=== PATIENT | female | born 1965 | race Caucasian/White ===

== ENCOUNTER → 2016-09-13 | Outpatient (CLI) | payer OTHER | LOC: CIMAGING 11:37 | PROVIDERS: ATTEND Family Medicine | DX: M54.9 Dorsalgia, unspecified (principal); M46.1 Sacroiliitis, not elsewhere classified | CPT/HCPCS: 72100-PO; 72202-PO ==

== ENCOUNTER → 2017-01-31 | Outpatient (CLI) | payer OTHER | LOC: BMCIMAGING 15:49 | PROVIDERS: ATTEND Podiatrist Foot & Ankle Surgery | DX: M21.42 Flat foot [pes planus] (acquired), left foot (principal); M77.32 Calcaneal spur, left foot ==

== ENCOUNTER → 2017-02-14 | Outpatient (CLI) | payer OTHER ==
[~2017-02-14] MED LIST: IOPAMIDOL (ISOVUE-300) 100 ML BTL ONE
== END ==
LOC: FIMAGING 14:35
PROVIDERS: ATTEND Family Medicine
DX: R22.1 Localized swelling, mass and lump, neck (principal); R07.9 Chest pain, unspecified
CPT/HCPCS: Q9967

== ENCOUNTER → 2017-04-06 | Outpatient (CLI) | payer OTHER | LOC: FIMAGING 14:05 | PROVIDERS: ATTEND Family Medicine | DX: R59.0 Localized enlarged lymph nodes (principal) ==

== ENCOUNTER 2017-06-28 05:43 | Day surgery (SDC) | payer OTHER ==
--- NOTE | 2017-06-27 13:20 | GHP ---
[f rep st] PREOP HISTORY AND PHYSICAL DATE OF ADMISSION: 06/28/2017 HISTORY OF PRESENT ILLNESS: Sandro is a 52-year-old female, who comes to us with complaints of a te nder right supraclavicular lump. A neck CT was performed, which was rather unremarkable aside from s ome mildly enlarged left level IIA cervical lymph nodes measuring up to 11 mm. Of note, the largest right-sided lymph node measured 7 mm. Her nasal cavity, oral cavity, pharynx,larynx, parotid gland, and thyroid gland were normal, and the visualized brain and intracranial contents were normal, as wel l. She does complain of some night sweats but denies any infections, trauma, weight loss, chronic co ugh, or fatigue. PAST MEDICAL HISTORY: Per PCP, includes genital herpes and sacroiliac inflammation. PAST SURGICAL HISTORY: Hysterectomy. MEDICATIONS: Aspirin and valacyclovir. ALLERGIES: Erythromycin and penicillin. SOCIAL HISTORY: Patient has 3 adult children and does not smoke. REVIEW OF SYSTEMS: Includes night sweats, headaches, varicose veins, leg swelling, joint pain, and c laustrophobia; otherwise, a 10-point review of systems was negative. PHYSICAL EXAMINATION: GENERAL: A 52-year-old female, alert and oriented x3, and in no acute distres s. HEENT: Normocephalic, atraumatic. NECK: No thyromegaly, with mild mobile supraclavicular and c ervical lymphadenopathy. All very soft. CHEST: Clear to auscultation bilaterally. CARDIAC: Regul ar rate and rhythm. ABDOMEN: Soft, nontender. EXTREMITIES: Warm and dry. PSYCH: Normal mood and affect. IMPRESSION: This is a 52-year-old female who complains of night sweats and tender right cervical lym phadenopathy. PLAN: The patient's head and neck CT was not terribly concerning; however, the patient is very worri ed about these enlarged lymph nodes. We will go ahead and proceed with right supraclavicular lymph n ode biopsy. Risks and options have been discussed including, but not limited to, bleeding, infection , swelling, injury to a nerve, damage to surrounding structures, failure to obtain diagnosis, need fo r further surgery, and/or treatment, and other problems, and she requests to proceed. /[id number]/MODL
[2017-06-28] MEDS ORDERED: LIDOCAINE 1% 2 ML INJ ID PRN (05:54)
[2017-06-28] MEDS ORDERED: LR 1,000 ML IV ONE (05:54)
[2017-06-28] MEDS ORDERED: levOFLOXACIN 500 MG/DEXTROSE 100 ML IV ONE (06:00)
[2017-06-28] MEDS ORDERED: BUPIVACAINE 0.5% 30 ML SDV ONE (06:16)
[2017-06-28 06:32] VITALS: PULSE 77
--- NOTE | 2017-06-28 06:35 | PDHPUP ---
History & Physical Update H&P update statement: This history and physical update is based on an assessment of the patient which was completed after admission or registration (within 24 hours), but prior to the surgery/procedure. updated 06/28/17
[2017-06-28] MEDS ORDERED: MIDAZOLAM 2 MG/2 ML VIAL IVP ONE (07:07)
--- NOTE | 2017-06-28 07:08 | PDANEPAE ---
ANE History of Present Illness left neck mass ANE Past Medical History - Cardiovascular History Hx Hypertension: No Hx Arrhythmias: No Hx Chest Pain: No Hx Coronary Artery / Peripheral Vascular Disease: No Hx CHF / Valvular Disease: No Hx Palpitations: No - Pulmonary History Hx COPD: No Hx Asthma/Reactive Airway Disease: No Hx Recent Upper Respiratory Infection: No Hx Oxygen in Use at Home: No Hx Sleep Apnea: Yes Sleep Apnea Screening Result - Last Documented: Positive Pulmonary History Comment: LAITH uses CPAP - Neurologic History Hx Cerebrovascular Accident: No Hx Seizures: No Hx Dementia: No Neurologic History Comment: "H/A starts at base of neck and then goes to forehead" since December -"persisted" - Endocrine History Hx Diabetes: No - Renal History Hx Renal Disorders: Yes Renal History Comment: occ stress incontinence. Kidney infection . - Liver History Hx Hepatic Disorders: No - Neurological & Psychiatric Hx Hx Neurological and Psychiatric Disorders: No - Cancer History Hx Cancer: No - Congenital Disorder History Hx Congenital Disorders: No - GI History Hx Gastrointestinal Disorders: No - Other Health History Other Health History: enlarged lymph node (L side of neck) .Also enlarged lymph nodes R side - Chronic Pain History Chronic Pain: No - Surgical History Prior Surgeries: partial hysterectomy w/ bladder suspension 1993. tonsillectomy child. lymph nodes excised -bilat axilla ANE Review of Systems Review of Systems: - Exercise capacity METS (RN): 4 METS ANE Patient History - Allergies Allergies/Adverse Reactions: Penicillins Allergy (Verified 06/26/17 10:13) Rash ERITHROMYCIN Allergy (Uncoded 06/26/17 10:13) Rash - Home Medications Home medications: home medication list seen and reviewed Home Medications: NK [No Known Home Meds] 06/26/17 [Last Taken Unknown] - NPO status NPO Status: no food or drink >8 hours NPO Since - Liquids (Date): 06/27/17 NPO Since - Liquids (Time): 22:00 NPO Since - Solids (Date): 06/27/17 NPO Since - Solids (Time): 20:00 - Smoking Hx Smoking Status: Never smoked ANE Labs/Vital Signs - Vital Signs Blood Pressure: 129/82 Heart Rate: 77 Respiratory Rate: 16 O2 Sat (%): 92 Height: 165.1 cm Weight: 104.326 kg ANE Physical Exam - Airway Neck exam: FROM Mallampati Score: Class 1 Mouth exam: normal dental/mouth exam - Pulmonary Pulmonary: no respiratory distress - Cardiovascular Cardiovascular: regular rate and rhythym - ASA Status ASA Status: II ANE Anesthesia Plan Anesthesia Plan: GA w LMA
[2017-06-28] MEDS ORDERED: fentaNYL 100 MCG/2 ML INJ ONE ×3 (07:10→09:01)
[2017-06-28] MEDS ORDERED: PROPOFOL 200 MG/20 ML VIAL ONE ×2 (07:10)
[2017-06-28] MEDS ORDERED: NALOXONE HCL 0.4 MG/ML INJ IVP PRN (07:44)
[2017-06-28] MEDS ORDERED: fentaNYL 100 MCG/2 ML INJ IVP PRN (07:44)
[2017-06-28] MEDS ORDERED: PROMETHAZINE HCL 25 MG/ML INJ IVP PRN (07:44)
[2017-06-28] MEDS ORDERED: OXYCODONE/APAP 5/325 TAB PO PRN (07:44)
[2017-06-28] MEDS ORDERED: ONDANSETRON 4 MG/2 ML VIAL IVP PRN (07:44)
[2017-06-28] MEDS ORDERED: HYDROmorphONE/DILAUDID 1 MG/ML INJ IVP PRN (07:44)
[2017-06-28] MEDS ORDERED: BUPIVACAINE/EPI 0.5% 30 ML SDV ONE (07:51)
--- NOTE | 2017-06-28 08:30 | POSTANESTH ---
Post Anesthetic Evaluation Cardiovascular Status: Normal, Stable Respiratory Status: Normal, Stable Level of Consciousness/Mental Status: Can Participate in Eval Pain Control: Adequate, Prn Tx Ordered Nausea/Vomiting Control: Adequate, Prn Tx Ordered Complications Possibly Related to Anesthesia: None Noted
[2017-06-28 09:05] VITALS: RESP 15
[2017-06-28 09:47] VITALS: TEMP 97.5
--- NOTE | 2017-06-28 09:50 | GOP ---
[f rep st] OPERATIVE REPORT DATE OF OPERATION: SURGEON: Jason Denney MD DELIVERY DRIVER/CUSTOMER SERVICE: HAVEN Rahman. ANESTHESIOLOGIST: Dr. Washington. PREOPERATIVE DIAGNOSIS: Left supraclavicular adenopathy. POSTOPERATIVE DIAGNOSIS: Left supraventricular adenopathy; path pending. PROCEDURE PERFORMED: Left scalene node biopsies. FINDINGS: The patient was found to have 2 enlarged 1 cm lymph nodes in the scalene fat pad which nieves eared to be matted together. They did not appear to be malignant. There was no associated purulence . Final path is pending. DESCRIPTION OF PROCEDURE: Patient taken to the operating room where she received satisfactory genera l endotracheal anesthesia by Dr. Washington, placed in supine position, prepped and draped in usual steri le fashion. A transverse incision was made in the left supraclavicular space, carried down through t he platysma and superficial fascia. A palpable mass was grasped with towel clip and elevated up. It appeared to be a couple of lymph nodes matted together. These were dissected free. Hemostasis was obtained with hemoclips and electrocautery. The wound was infiltrated with 0.5% Marcaine. Platysma was closed with 3-0 Vicryl and the skin with a 4-0 Monocryl subcuticular stitch. She tolerated the p rocedure well. No complications. Taken to recovery room in good condition. /[id number]/MODL
[2017-06-28 10:17] VITALS: BP 108/77; O2SAT 92
--- NOTE | 2017-06-28 12:50 | POSTOPPROG ---
Post Op Note Date of Operation: 06/28/17 Surgeon: Jason Denney Motor Equipment Lieutenant: Andrea Culver Anesthesiologist: Dr Yanez Anesthesia: GET(General Endotracheal) Pre-op Diagnosis: Left cervical lymphdenopathy Post-op Diagnosis: same Indication: same Procedure: left supra clvicular node excision Findings: inflammed appearing nodes Inf/Abcess present in the surg proc area at time of surgery?: No Depth: Deep Incisional (Fascial) EBL: Minimal Specimen(s): 2 nodes
[2017-06-30 12:19] LABS: FINAL DIAGNOSIS See Comments; MICROSCOPIC DESCRIPTION See Comments
== END 2017-06-28 10:43 | disposition home or self-care (01) ==
LOC: FSGY 05:43
PROVIDERS: ATTEND Surgery
PROC: 07B20ZX Excision of Left Neck Lymphatic, Open Approach, Diagnostic (ICD-10-PCS; principal; 2017-06-28 07:15)
DX: R59.0 Localized enlarged lymph nodes (principal)
CPT/HCPCS: 88184-90; 88185-91; J0171; J1956; J2250; J2704; J3010

== ENCOUNTER 2017-10-24 14:55 | Emergency (ER) | payer OTHER ==
[2017-10-24] MEDS ORDERED: ASPIRIN 81 MG CHEWABLE TAB PO ONE (15:19)
--- NOTE | 2017-10-24 15:27 | EDPHY ---
H & P Time Seen by Provider: 10/24/17 15:10 HPI/ROS: This patient complains of right calf pain since air travel over the weekend. She explains that she flew to [place] for the weekend and return Sunday, 2 days prior to this visit and upon returning she noted some achiness for of 10 in intensity deep in her right mid calf that persists. This pain worsened slightly when she walks. No other exacerbating factors. She does recall having this pain before. She has associated paresthesias to the right foot describes tingling. She called her primary care physician regarding the symptoms and the urged her to come in the emergency department to rule out DVT. The patient came in by private vehicle for evaluation of her symptoms. She also complains of a mild bifrontal headache similar to prior headaches over the past 2 days. She took ibuprofen yesterday with relief of her headache but no change in her calf pain. She notes no other exacerbating factors. ROS: Constitutional: No fevers or chills. HEENT: No recent URI symptoms. No ear pain, throat pain or other complaints Neuro: No confusion. No focal weakness. Tingling in the right foot but no numbness. Pulmonary: No shortness of breath. No pleuritic pain Cardiovascular: No lightheadedness. She has noticed significant swelling the affected calf. No discoloration the affected leg. GI: No complaints : No complaints new line integumentary: No skin rash 10 point ROS is otherwise negative. Past Medical/Surgical History: Obesity Sleep apnea No family history of DVT or PE Social History: Travel to [place] by plane over the weekend return to Sunday. Smoking Status: Never smoked Physical Exam: Vital signs are normal General Appearance: Pleasant obese female Alert, no distress. Eyes: Pupils equal and round no pallor or injection. ENT, Mouth: Mucous membranes moist. No sinus tenderness. No other cranial tenderness. Neck is supple with no meningismus. Respiratory: There are no retractions, lungs are clear to auscultation. Cardiovascular: Regular rate and rhythm. Neurological: GCS 15. She maintains normal light touch sensory exam bilateral lower extremities despite her paresthesias. Cranial nerves 2-12 grossly intact. Skin: Warm and dry, no rashes. Musculoskeletal: Neck is supple nontender. Extremities are symmetrical, full range of motion. The patient has left calf tenderness in the mid calf. Homans is negative. No significant swelling. Psychiatric: Mood and affect are normal DIFFERENTIAL DIAGNOSIS: After history and physical exam differential diagnosis was considered for DVT, calf muscle strain, Liu cyst, tension headache, unspecified headache Constitutional: Initial Vital Signs Temperature (C) 36.8 C 10/24/17 15:08 Heart Rate 83 10/24/17 15:08 Respiratory Rate 14 10/24/17 15:08 Blood Pressure 127/89 H 10/24/17 15:08 O2 Sat (%) 94 10/24/17 15:08 O2 Delivery Mode Room Air Allergies/Adverse Reactions: Penicillins Allergy (Verified 10/24/17 15:07) Rash ERITHROMYCIN Allergy (Uncoded 06/26/17 10:13) Rash Home Medications: Medication Instructions Recorded NK [No Known Home Meds] 06/26/17 MDM/Departure - MDM Imaging Results: Imaging Impressions Extremity Venous Study 10/24/17 15:19 Impression: No evidence of deep vein thrombosis in the right lower extremity. Imaging: Discussed imaging studies w/ call center receptionist Radiologist Medications Given: Discontinued Medications Aspirin (Aspirin) 324 mg PO EDNOW ONE Stop: 10/24/17 15:20 Last Admin: 10/24/17 15:23 Dose: 324 mg ED Course/Re-evaluation: Aspirin p.o. I counseled patient regarding her negative Doppler ultrasound that ruled out DVT. I suspect that she has a calf muscle strain from recent travel I counseled her regarding this. Her headache resolved while here without intervention other than the aspirin that she was given initially. I suspect that she had a tension headache and counseled regarding this as well. Patient will follow up with primary care physician for any ongoing symptoms but understands the need to return emergency department should she develop any worsening of her symptoms despite the treatment plan of gentle calf stretches, Tylenol and ibuprofen. - Depart Disposition: Home, Routine, Self-Care Clinical Impression: Pain of right calf Condition: Good Instructions: Muscle Strain (DC) Additional Instructions: Diagnosis: Calf pain You're Doppler ultrasound of the leg today reveals no evidence of blood clot. It is likely that you have a muscle strain from her recent travel. Plan: Gentle stretches each day Ibuprofen and Tylenol for discomfort if needed Symptoms should improve over the next 5-7 days. Return if you develops any significant worsening despite the treatment plan. Referrals: Aime Chu MD [Primary Care Provider] - As per Instructions
[2017-10-24 16:30] VITALS: BP 132/78
== END 2017-10-24 16:22 | disposition home or self-care (01) ==
LOC: CED 14:55
DX: M79.661 Pain in right lower leg (principal)
CPT/HCPCS: 93971-PO

== ENCOUNTER → 2017-11-15 | Outpatient (CLI) | payer OTHER | LOC: FIMAGING 13:27 | PROVIDERS: ATTEND Family Medicine | DX: M79.669 Pain in unspecified lower leg (principal) ==